=== PATIENT | male | born 1945 | race Caucasian/White ===

== ENCOUNTER 2023-12-25 13:10 | Emergency (ER) | payer MEDICARE, BC ==
[~2023-12-25] VITALS: Ht 175.3 cm; Wt 76.8 kg
[~2023-12-25 13:10] MED LIST: ASPIRIN 81M81 MG/TA2 PO; REGLAN 10MG10 MG/TAB PO; TRICOR145 MG PO; XANAX 0.5MG0.5 MG PO; ZOFRAN ODT8 MG PO
[2023-12-25 13:16] VITALS: TEMP 98.4
[2023-12-25] MEDS ORDERED: Acetaminophen 500 MG TAB PO ONE (13:45)
[2023-12-25 14:08] LABS: BASO # 0.1 K/mm3 (0.0-0.2); BASO % 0.9 % (0.0-2.0); EOS # 0.6 K/mm3 (0.0-0.7); GRAN # 4.2 K/mm3 (1.4-6.5); GRAN % 51.8 % (42.2-75.2); HEMOGLOBIN 17.6 g/dl (13.5-18.0); LYMPH # 2.5 K/mm3 (1.2-3.4); LYMPH % 30.4 % (20.0-51.0); MEAN CELL VOLUME 91 fl (80.0-100.0); MEAN CORPUSCULAR HEMOGLOBIN 31 pg (27-31); MEAN CORPUSCULAR HGB CONC 34 g/dl (33.0-37.0); MEAN PLATELET VOLUME 9.8 fl (7.4-10.4); MONO # 0.8 K/mm3 (0.1-0.6); MONO % 9.4 % (1.7-9.3); PLATELET COUNT 242 K/mm3 (130-400); RED BLOOD COUNT 5.77 M/mm3 (4.20-5.60)
[2023-12-25 14:17] LABS: HEMATOCRIT 52.2 % (42.0-52.0)
[2023-12-25 14:34] LABS: ALBUMIN 4.4 g/dL (3.4-4.8); BILIRUBIN,TOTAL 0.4 mg/dL (0.2-1.2); CALCIUM 9.8 mg/dL (8.4-10.2); CREATININE, serum 1.01 mg/dL (0.72-1.25); POTASSIUM 4.1 mEq/L (3.5-4.5); TOTAL PROTEIN 7.2 g/dl (6.2-8.1)
[2023-12-25 15:02] VITALS: BP 127/76; PULSE 64
== END 2023-12-25 15:07 | disposition home or self-care (01) ==
LOC: COL.ER 13:10
PROVIDERS: Emergency Medicine
DX: I82.811 Embolism and thrombosis of superficial veins of right lower extremity (principal); I44.0 Atrioventricular block, first degree